=== PATIENT | male | born 1980 | race Caucasian/White ===

== ENCOUNTER 2020-09-06 03:59 | Emergency (ER) | payer MEDICAID, SELFPAY ==
[~2020-09-06] VITALS: Ht 185.4 cm; Wt 101.0 kg
[2020-09-06 04:08] VITALS: BP 126/86
[2020-09-06] MEDS ORDERED: LORazepam 1MG TABLET PO ONE (04:30)
[2020-09-06] MEDS ORDERED: LORazepam 1MG TABLET ONE (04:44)
--- NOTE | 2020-09-06 05:21 | NUR ---
Patient/Caregiver given discharge instructions and they have confirmed that they understand the instructions. Patient ambulatory with steady gait.
== END 2020-09-06 05:22 | disposition home or self-care (01) ==
LOC: ED 05:16
DX: F41.1 Generalized anxiety disorder (principal); F10.14 Alcohol abuse with alcohol-induced mood disorder; F11.14 Opioid abuse with opioid-induced mood disorder; F15.14 Other stimulant abuse with stimulant-induced mood disorder; Y90.9 Presence of alcohol in blood, level not specified
CPT/HCPCS: 99283

== ENCOUNTER 2020-09-30 08:39 | Emergency (ER) | payer MEDICAID ==
[~2020-09-30] VITALS: Ht 182.9 cm; Wt 105.0 kg
--- NOTE | 2020-09-30 08:58 | NUR ---
[place]. report received from ems. +SI. pt went to [facility](out patient rehab) and had severe delusions with SI statement. Legal hold placed by SW at [facility]. pt's aox4. resps even and unlabored. pt changed to gown. all belongings put into bag and into locker.
--- NOTE | 2020-09-30 09:04 | NUR ---
urine cup given at this time.
--- NOTE | 2020-09-30 09:08 | NUR ---
pt provided urine sample. ua sent.
--- NOTE | 2020-09-30 09:10 | NUR ---
L2K paper in the chart. pa notified.
[2020-09-30 09:16] LABS: BASOPHILS % (AUTO) 1 % (0-1); EOSINOPHILS % (AUTO) 3 % (1-7); LYMPHOCYTES % (AUTO) 28 % (22-44); MEAN CORPUSCULAR HEMOGLOBIN 30.4 pg (27.5-34.5); MEAN CORPUSCULAR HGB CONC 34.2 g/dL (33.2-36.2); MEAN PLATELET VOLUME 7.5 fL (7.4-10.4); MONOCYTES % (AUTO) 10 % (2-9); NEUTROPHILS % (AUTO) 59 % (42-75); PLATELET COUNT 229 x10^3/uL (130-400); RED BLOOD COUNT 4.63 x10^6/uL (4.38-5.82); RED CELL DISTRIBUTION WIDTH 12.9 % (9.4-14.8)
[2020-09-30 09:20] LABS: MD NO
[2020-09-30 09:27] LABS: ALBUMIN 3.9 g/dL (3.4-5.0); ANION GAP 5 mmol/L (5-15); CALCIUM 8.6 mg/dL (8.5-10.1); CHLORIDE 106 mmol/L (98-107); CREATININE 0.76 mg/dL (0.7-1.3)
--- NOTE | 2020-09-30 09:27 | NUR ---
hospital bed ordered at this time.
[2020-09-30 09:29] LABS: SALICYLATE LEVEL < 1.7 mg/dL (2.8-20.0)
[2020-09-30 09:40] LABS: AMPHETAMINE SCREEN, URINE Negative (Negative); BARBITURATE SCREEN, URINE Negative (Negative); COCAINE SCREEN, URINE Negative (Negative); METHADONE SCREEN, URINE Positive (Negative); OPIATE SCREEN, URINE Negative (Negative)
[2020-09-30 09:41] LABS: BENZODIAZEPINE SCREEN, URINE Negative (Negative); CANNABINOID SCREEN, URINE Positive (Negative)
--- NOTE | 2020-09-30 09:41 | NUR ---
hospital bed in room now.
--- NOTE | 2020-09-30 10:36 | NUR ---
REPORT FROM CARROLL LUGO, ASSUME CARE OF PT AT THIS TIME.
--- NOTE | 2020-09-30 11:01 | NUR ---
PT SLEEPING, NAD. SITTER AT DOORWAY.
--- NOTE | 2020-09-30 12:10 | NUR ---
SARINA LI IN TO SEE PT. MEAL TRAY ARRIVED AND WITH SITTER.
[2020-09-30 13:40] VITALS: BP 116/71
--- NOTE | 2020-09-30 13:40 | NUR ---
RAPID COVID SWAB COMPLETED AND WALKED TO LAB. VS UPDATED IN COMPUTER. PT COOPERATIVE, COMPLETED LUNCH. SITTER AT DOORWAY.
--- NOTE | 2020-09-30 14:33 | NUR ---
REPORT TO BARB LUGO, PT READY FOR TRANSPORT AT 1445.
[2020-09-30] MEDS ORDERED: NICO2GUM41 PO (16:11)
[2020-09-30] MEDS ORDERED: METH10OR12 PO (16:11)
== END 2020-10-01 01:05 | disposition home or self-care (01) ==
LOC: ED 09:23
DX: R45.851 Suicidal ideations (principal); Z20.822 Contact with and (suspected) exposure to COVID-19
CPT/HCPCS: 36415; 80048; 80299; 80307; 80320; 80329; 82040; 85025; 87426; 99283; 99284; 99285; G0480

== ENCOUNTER 2020-09-30 15:10 | Inpatient (IN) | payer MEDICAID ==
[~2020-09-30] VITALS: Ht 184.2 cm; Wt 101.5 kg
[2020-09-30 15:44] VITALS: BP 119/76
[2020-09-30] MEDS ORDERED: METH10OR12 PO (16:11)
[2020-09-30] MEDS ORDERED: NICO2GUM41 PO (16:11)
[2020-09-30] MEDS ORDERED: ONDANSETRON ODT 4 MG PO PRN (16:30)
[2020-09-30] MEDS ORDERED: FLU VACC QS2020-21(6MOS UP)/PF 60MCG/0.5 ML SYR IM ONE (16:30)
[2020-09-30] MEDS ORDERED: NICOTINE 21 MG/24 HR PATCH.TD24 TD SCH (16:30)
[2020-09-30 17:18] LABS: MICROSCOPIC NOT IND
[2020-09-30 19:45] VITALS: BP 105/67
[2020-10-01 05:46] LABS: FREE T4 (FREE THYROXINE) 1.1 ng/dL (0.76-1.46); LDL/HDL RATIO 0.7 (0.5-3.0)
[2020-10-01 07:08] VITALS: BP 103/72
[2020-10-01] MEDS: METHADONE 10 MG TABLET PO SCH (08:41)
[2020-10-01] MEDS: ACETAMINOPHEN 325 MG TABLET PO PRN ×2 (09:13→20:10)
[2020-10-01] MEDS: NICOTINE 21 MG/24 HR PATCH.TD24 TD SCH (09:13)
[2020-10-01] MEDS: CARIPRAZINE 1.5 MG CAP PO SCH (14:33)
[2020-10-01 19:06] VITALS: BP 103/70
[2020-10-01] MEDS: DOXEPIN 25 MG CAPSULE PO PRN (20:10)
[2020-10-01] MEDS: DOCUSATE 100 MG CAPSULE PO PRN (20:10)
[2020-10-02] MEDS: METHADONE 10 MG TABLET PO SCH (05:57)
[2020-10-02 07:34] VITALS: BP 122/74
[2020-10-02] MEDS: CARIPRAZINE 1.5 MG CAP PO SCH (08:30)
[2020-10-02] MEDS: NICOTINE 21 MG/24 HR PATCH.TD24 TD SCH (08:30)
[2020-10-02] MEDS: POLYETHYLENE GLYCOL 17 GM PACKET PO PRN (08:40)
[2020-10-02] MEDS: ACETAMINOPHEN 325 MG TABLET PO PRN ×2 (08:40→20:13)
[2020-10-02 19:54] VITALS: BP 114/70
[2020-10-02] MEDS: DOXEPIN 25 MG CAPSULE PO PRN (20:13)
[2020-10-02] MEDS: DOCUSATE 100 MG CAPSULE PO PRN (20:14)
[2020-10-03 05:54] VITALS: BP 105/68
[2020-10-03 05:55] VITALS: BP 105/68
[2020-10-03] MEDS: METHADONE 10 MG TABLET PO SCH (05:58)
[2020-10-03] MEDS: CARIPRAZINE 1.5 MG CAP PO SCH ×2 (09:00→10:01)
[2020-10-03] MEDS: NICOTINE 21 MG/24 HR PATCH.TD24 TD SCH (09:59)
[2020-10-03 19:30] VITALS: BP 118/80
[2020-10-03] MEDS: DOXEPIN 25 MG CAPSULE PO PRN (20:20)
[2020-10-03] MEDS: ACETAMINOPHEN 325 MG TABLET PO PRN (20:20)
[2020-10-03] MEDS: POLYETHYLENE GLYCOL 17 GM PACKET PO PRN (20:20)
[2020-10-04] MEDS: METHADONE 10 MG TABLET PO SCH (05:49)
[2020-10-04] MEDS: ACETAMINOPHEN 325 MG TABLET PO PRN ×3 (05:57→20:20)
[2020-10-04 07:39] VITALS: BP 111/72
[2020-10-04] MEDS: CARIPRAZINE 1.5 MG CAP PO SCH (09:00)
[2020-10-04] MEDS: POLYETHYLENE GLYCOL 17 GM PACKET PO PRN (09:05)
[2020-10-04] MEDS: NICOTINE 21 MG/24 HR PATCH.TD24 TD SCH (09:06)
[2020-10-04 19:36] VITALS: BP 105/69
[2020-10-04] MEDS: DOXEPIN 25 MG CAPSULE PO PRN (20:20)
[2020-10-04] MEDS: DOCUSATE 100 MG CAPSULE PO PRN (20:20)
[2020-10-05] MEDS: ACETAMINOPHEN 325 MG TABLET PO PRN ×3 (06:02→20:17)
[2020-10-05] MEDS: METHADONE 10 MG TABLET PO SCH (06:02)
[2020-10-05 07:39] VITALS: BP 108/71
[2020-10-05] MEDS: CARIPRAZINE 1.5 MG CAP PO SCH (09:00)
[2020-10-05] MEDS: DOCUSATE 100 MG CAPSULE PO PRN (09:30)
[2020-10-05] MEDS: NICOTINE 21 MG/24 HR PATCH.TD24 TD SCH (09:30)
[2020-10-05] MEDS: POLYETHYLENE GLYCOL 17 GM PACKET PO PRN (09:30)
[2020-10-05] MEDS: MAGNESIUM CITRATE 300ML ORAL SOL PO PRN (17:15)
[2020-10-05 19:17] VITALS: BP 118/76
[2020-10-05] MEDS: DOXEPIN 25 MG CAPSULE PO PRN (20:18)
[2020-10-06] MEDS: METHADONE 10 MG TABLET PO SCH (06:00)
[2020-10-06 07:39] VITALS: BP 109/67
[2020-10-06] MEDS: ACETAMINOPHEN 325 MG TABLET PO PRN ×2 (08:13→20:13)
[2020-10-06] MEDS: NICOTINE 21 MG/24 HR PATCH.TD24 TD SCH (08:13)
[2020-10-06] MEDS: CARIPRAZINE 1.5 MG CAP PO SCH (08:15)
[2020-10-06 19:35] VITALS: BP 117/75
[2020-10-06] MEDS: DOXEPIN 25 MG CAPSULE PO PRN (20:13)
[2020-10-07] MEDS ORDERED: METHADONE 5 MG TABLET ONE (06:02)
[2020-10-07] MEDS: METHADONE 10 MG TABLET PO SCH (06:15)
[2020-10-07 07:35] VITALS: BP 118/76
[2020-10-07] MEDS: CARIPRAZINE 1.5 MG CAP PO SCH (08:27)
[2020-10-07] MEDS: NICOTINE 21 MG/24 HR PATCH.TD24 TD SCH (08:27)
[2020-10-07] MEDS ORDERED: DOXE25CA PO (09:53)
[2020-10-07] MEDS ORDERED: CARI1.5C2 PO (09:53)
[2020-10-07 19:13] VITALS: BP 119/82
[2020-10-07] MEDS: DOXEPIN 25 MG CAPSULE PO PRN (20:16)
[2020-10-08] MEDS: METHADONE 10 MG TABLET PO SCH (06:05)
[2020-10-08 07:30] VITALS: BP 128/82
[2020-10-08] MEDS: CARIPRAZINE 1.5 MG CAP PO SCH (09:11)
[2020-10-08] MEDS: NICOTINE 21 MG/24 HR PATCH.TD24 TD SCH (09:11)
[2020-10-08 19:20] VITALS: BP 103/69
[2020-10-08] MEDS: DOXEPIN 25 MG CAPSULE PO PRN (20:18)
[2020-10-09] MEDS: METHADONE 10 MG TABLET PO SCH (05:38)
[2020-10-09 07:10] VITALS: BP 117/79
[2020-10-09] MEDS: NICOTINE 21 MG/24 HR PATCH.TD24 TD SCH (09:24)
[2020-10-09] MEDS: CARIPRAZINE 1.5 MG CAP PO SCH (09:24)
[2020-10-09] MEDS: MAGNESIUM CITRATE 300ML ORAL SOL PO PRN (09:25)
[2020-10-09 19:38] VITALS: BP 107/73
[2020-10-09] MEDS: DOXEPIN 25 MG CAPSULE PO PRN (20:43)
[2020-10-10] MEDS: METHADONE 10 MG TABLET PO SCH (06:17)
[2020-10-10 07:57] VITALS: BP_SYST 113; BP_SYST 115; BP_DIAS 71; BP_DIAS 75
[2020-10-10] MEDS: NICOTINE 21 MG/24 HR PATCH.TD24 TD SCH (09:01)
[2020-10-10] MEDS: CARIPRAZINE 1.5 MG CAP PO SCH (09:08)
[2020-10-10 19:47] VITALS: BP 123/87
[2020-10-10] MEDS: DOXEPIN 25 MG CAPSULE PO PRN (20:14)
[2020-10-11] MEDS: METHADONE 10 MG TABLET PO SCH (06:16)
[2020-10-11 07:42] VITALS: BP 133/91
[2020-10-11] MEDS: NICOTINE 21 MG/24 HR PATCH.TD24 TD SCH (08:59)
[2020-10-11] MEDS: CARIPRAZINE 1.5 MG CAP PO SCH (09:00)
[2020-10-11] MEDS: PAROXETINE 20 MG TABLET PO SCH (15:52)
[2020-10-11 19:30] VITALS: BP 121/78
[2020-10-11] MEDS: DOXEPIN 25 MG CAPSULE PO PRN (20:05)
[2020-10-11] MEDS: DOCUSATE 100 MG CAPSULE PO PRN (20:05)
[2020-10-12] MEDS: METHADONE 10 MG TABLET PO SCH (06:10)
[2020-10-12 07:51] VITALS: BP 115/80
[2020-10-12] MEDS: PAROXETINE 20 MG TABLET PO SCH (08:31)
[2020-10-12] MEDS: CARIPRAZINE 1.5 MG CAP PO SCH (08:32)
[2020-10-12] MEDS: NICOTINE 21 MG/24 HR PATCH.TD24 TD SCH (08:33)
[2020-10-12 19:32] VITALS: BP 117/85
[2020-10-12] MEDS: DOXEPIN 25 MG CAPSULE PO PRN (20:12)
[2020-10-13] MEDS: METHADONE 10 MG TABLET PO SCH (06:01)
[2020-10-13 07:10] VITALS: BP 115/73
[2020-10-13] MEDS: CARIPRAZINE 1.5 MG CAP PO SCH (08:59)
[2020-10-13] MEDS: NICOTINE 21 MG/24 HR PATCH.TD24 TD SCH (08:59)
[2020-10-13] MEDS: PAROXETINE 20 MG TABLET PO SCH (09:52)
[2020-10-13 19:38] VITALS: BP 119/76
[2020-10-13] MEDS: DOXEPIN 25 MG CAPSULE PO PRN (20:05)
[2020-10-14] MEDS: METHADONE 10 MG TABLET PO SCH (05:56)
[2020-10-14 07:46] VITALS: BP 112/72
[2020-10-14] MEDS: CARIPRAZINE 1.5 MG CAP PO SCH (09:00)
[2020-10-14] MEDS: PAROXETINE 20 MG TABLET PO SCH (09:00)
[2020-10-14] MEDS: NICOTINE 21 MG/24 HR PATCH.TD24 TD SCH (09:00)
== END 2020-10-14 11:00 | disposition home or self-care (01) | DRG 885 ==
LOC: 3E 15:10
PROVIDERS: ADMIT Psychiatry & Neurology Psychosomatic Medicine; ATTEND Psychiatry & Neurology Psychosomatic Medicine
DX: F33.2 Major depressive disorder, recurrent severe without psychotic features (principal); F11.20 Opioid dependence, uncomplicated; R45.851 Suicidal ideations; F10.21 Alcohol dependence, in remission; F12.10 Cannabis abuse, uncomplicated; F25.9 Schizoaffective disorder, unspecified; F41.9 Anxiety disorder, unspecified; Z87.891 Personal history of nicotine dependence
CPT/HCPCS: 36415; 71045; 80061; 81003; 84439; 84443; 90686; 93005; Q0162

== ENCOUNTER 2020-10-22 21:26 | Emergency (ER) | payer MEDICAID ==
[~2020-10-22] VITALS: Ht 188 cm; Wt 100.0 kg
[~2020-10-22 21:26] MED LIST: CARI1.5C2 PO; DOXE25CA PO; METH10OR12 PO; NICO2GUM41 PO
[2020-10-22] MEDS ORDERED: BENZTROPINE PO (22:36)
[2020-10-22] MEDS ORDERED: HALO1TAB PO (22:36)
[2020-10-22] MEDS ORDERED: [UNRECOGNIZED DRUG - OTHER] PO (22:36)
[2020-10-22] MEDS ORDERED: OLAN10TA9 PO (22:36)
[2020-10-22] MEDS ORDERED: HALO10TA PO (22:36)
[2020-10-22] MEDS ORDERED: PAROXETINE PO (22:36)
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
--- NOTE | 2020-10-22 23:14 | NUR ---
ANEUDY ALANIS: [phone] PT OKAYED INFORMATION RELEASE TO HIM.
--- NOTE | 2020-10-22 23:34 | NUR ---
PT RESTING ON JULISA, BESSY, NO CHANGE IN CONDITION, ROOM SECURED, SITTER IN LINE OF SIGHT, VSS. WCTM. WAITING FOR LABS RESULTS.
[2020-10-22 23:35] LABS: AMPHETAMINE SCREEN, URINE Negative (Negative); BARBITURATE SCREEN, URINE Negative (Negative); BENZODIAZEPINE SCREEN, URINE Negative (Negative); CANNABINOID SCREEN, URINE Positive (Negative); COCAINE SCREEN, URINE Negative (Negative); METHADONE SCREEN, URINE Positive (Negative); OPIATE SCREEN, URINE Negative (Negative)
[2020-10-22 23:37] LABS: ALANINE AMINOTRANSFERASE 112 U/L (12-78); ALBUMIN 4.3 g/dL (3.4-5.0); ANION GAP 8 mmol/L (5-15); CALCIUM 8.8 mg/dL (8.5-10.1); CHLORIDE 109 mmol/L (98-107); CREATININE 0.76 mg/dL (0.7-1.3)
[2020-10-22 23:38] LABS: SALICYLATE LEVEL < 1.7 mg/dL (2.8-20.0)
[2020-10-22 23:39] LABS: ALKALINE PHOSPHATASE 52 U/L (45-117); BILIRUBIN,TOTAL 0.4 mg/dL (0.2-1.0); TOTAL PROTEIN 7.8 g/dL (6.4-8.2)
[2020-10-22 23:50] LABS: BASOPHILS % (AUTO) 1 % (0-1); EOSINOPHILS % (AUTO) 1 % (1-7); LYMPHOCYTES % (AUTO) 27 % (22-44); MEAN CORPUSCULAR HEMOGLOBIN 30.1 pg (27.5-34.5); MEAN CORPUSCULAR HGB CONC 34.2 g/dL (33.2-36.2); MEAN PLATELET VOLUME 7.7 fL (7.4-10.4); MONOCYTES % (AUTO) 6 % (2-9); NEUTROPHILS % (AUTO) 65 % (42-75); PLATELET COUNT 274 x10^3/uL (130-400); RED CELL DISTRIBUTION WIDTH 13.4 % (9.4-14.8)
[2020-10-23] LABS: MD NO
--- NOTE | 2020-10-23 00:14 | NUR ---
PT RESTING ON GURNEY, NAD, EVEN AND UNLABORED RESPIRATIONS NOTED, EYES CLOSED, APPEARS COMFORTABLE, ROOM SECURED, SITTER IN LINE OF SIGHT, WCTM.
--- NOTE | 2020-10-23 00:56 | NUR ---
PT RESTING ON GURNEY, NAD, APPEARS COMFORTABLE, NO CHANGE IN CONDITION, VSS, EVEN AND UNLABORED RESPIRATIONS, ROOM SECURED, SITTER IN LINE OF SIGHT, WCTM.
--- NOTE | 2020-10-23 01:20 | NUR ---
BEDSIDE REPORT TO SKIP LUGO, PT CARE TRANSFERRED AT THIS TIME.
--- NOTE | 2020-10-23 02:05 | NUR ---
[facility]
--- NOTE | 2020-10-23 03:49 | NUR ---
PT RESTING IN BED WITH SITTER AT PT DOOR. PT IN SI SECURE ROOM. PT WITH EQUAL AND BILATERAL BREATHS. PT DENIED ANY CURRENT WANTS OR NEEDS
--- NOTE | 2020-10-23 03:55 | NUR ---
PACKET FAXED TO [facility], [facility], [facility]
--- NOTE | 2020-10-23 05:12 | NUR ---
HOSPITAL BED ORDERED FOR PT.
--- NOTE | 2020-10-23 06:00 | NUR ---
[facility] CALLED (RO) CONSIDERING TAKING PT ONCE THEY HAVE A BED AVALIABLE
--- NOTE | 2020-10-23 06:17 | NUR ---
PT MOVED TO ROOM 1, AND AMBULATED WITHOUT INCIDENT AND NO TROUBLE. PT AWAKE AND ALERT, AND COOPERATIVE. PT SLEEPING IN HOSPITAL BED NOW, NO DISTRESS. SITTER OUTSIDE OF DOOR WITH EYES ON PT.
--- NOTE | 2020-10-23 06:47 | NUR ---
REPORT AND CARE TO CHINO LUGO.
--- NOTE | 2020-10-23 06:52 | NUR ---
Pt sleeping in view of sitter, visible chest rise and fall. Breakfast tray ordered.
--- NOTE | 2020-10-23 06:58 | NUR ---
06/25 belongings bag verified in psych locker.
--- NOTE | 2020-10-23 08:39 | NUR ---
[facility] to accept. Report to PARISH Caro. Accepting MD Davis.
[2020-10-23 09:06] VITALS: BP 113/75
--- NOTE | 2020-10-23 09:07 | NUR ---
Pt given breakfast. Pt calm, and cooperative
== END 2020-10-23 12:14 ==
LOC: ED 22:46
DX: R45.851 Suicidal ideations (principal); F20.0 Paranoid schizophrenia
CPT/HCPCS: 36415; 80053; 80299; 80307; 80320; 80329; 85025; 99284; 99285; G0480

== ENCOUNTER 2020-11-29 | Emergency (ER) | payer MEDICAID ==
[~2020-11-29] VITALS: Ht 182.9 cm; Wt 104.5 kg
[~2020-11-29] MED LIST changes: +BENZTROPINE PO; +HALO10TA PO; +HALO1TAB PO; +OLAN10TA9 PO; +PAROXETINE PO; +[UNRECOGNIZED DRUG - OTHER] PO
[2020-11-29 00:23] VITALS: BP 116/73
--- NOTE | 2020-11-29 00:23 | NUR ---
Pt BIB EMS for auditory and visual hallucinations that were telling the pt to slit his throat with a knife. Pt states that he has a plan and that the "voices" are telling him to hurt himself. Pt has a past hx of schizophrenia and SI. Pt was placed in secure room, only hospital gown, and belongings accounted for and placed in secure locker. UA sample obtained, VSS, NADN, WCTM
[2020-11-29 00:41] LABS: BASOPHILS % (AUTO) 1 % (0-1); EOSINOPHILS % (AUTO) 4 % (1-7); LYMPHOCYTES % (AUTO) 32 % (22-44); MEAN CORPUSCULAR HEMOGLOBIN 30.9 pg (27.5-34.5); MEAN CORPUSCULAR HGB CONC 34.2 g/dL (33.2-36.2); MEAN PLATELET VOLUME 7.2 fL (7.4-10.4); MONOCYTES % (AUTO) 7 % (2-9); NEUTROPHILS % (AUTO) 57 % (42-75); PLATELET COUNT 287 x10^3/uL (130-400); RED BLOOD COUNT 4.31 x10^6/uL (4.38-5.82); RED CELL DISTRIBUTION WIDTH 12.6 % (9.4-14.8)
[2020-11-29 00:42] LABS: MD NO
[2020-11-29 00:54] LABS: ALANINE AMINOTRANSFERASE 56 U/L (12-78); ALBUMIN 3.7 g/dL (3.4-5.0); ANION GAP 5 mmol/L (5-15); CALCIUM 8.4 mg/dL (8.5-10.1); CHLORIDE 107 mmol/L (98-107); CREATININE 0.71 mg/dL (0.7-1.3); SALICYLATE LEVEL < 1.7 mg/dL (2.8-20.0)
[2020-11-29 00:56] LABS: ALKALINE PHOSPHATASE 67 U/L (45-117); BILIRUBIN,TOTAL 0.2 mg/dL (0.2-1.0); TOTAL PROTEIN 7.6 g/dL (6.4-8.2)
--- NOTE | 2020-11-29 01:25 | NUR ---
Pt resting in bed with eyes closed, even and symmetrical chest rise, NADN, WCTM
[2020-11-29 01:33] LABS: AMPHETAMINE SCREEN, URINE Negative (Negative); BARBITURATE SCREEN, URINE Negative (Negative); BENZODIAZEPINE SCREEN, URINE Negative (Negative); CANNABINOID SCREEN, URINE Positive (Negative); COCAINE SCREEN, URINE Negative (Negative); METHADONE SCREEN, URINE Positive (Negative); OPIATE SCREEN, URINE Negative (Negative)
--- NOTE | 2020-11-29 02:37 | NUR ---
Ciro has been in view of pt during his stay thus far
--- NOTE | 2020-11-29 02:37 | NUR ---
Pt resting in bed with eyes closed, even and symmetrical chest rise, NADN, WCTM
--- NOTE | 2020-11-29 04:02 | NUR ---
Pt resting in bed with eyes closed, even and symmetrical chest rise, NADN, WCTM. Sitter in line of sight of pt
--- NOTE | 2020-11-29 04:05 | NUR ---
Packet faxed to [facility] which have expressed intrest in this pt
--- NOTE | 2020-11-29 04:08 | NUR ---
TP: [facility] DECLINED PT
--- NOTE | 2020-11-29 04:11 | NUR ---
[facility] declined, packet faxed to [facility], Yazan Ferrell, and Reed Marcano
--- NOTE | 2020-11-29 04:28 | NUR ---
Kvng to nurse with Edward ULGO from [place], says he will call back
--- NOTE | 2020-11-29 04:31 | NUR ---
TP: DR RUANO FROM [facility] ACCEPTS PT
--- NOTE | 2020-11-29 05:00 | NUR ---
Pt resting in bed with eyes closed, even and symmetrical chest rise, NADN, WCTM. Sitter in line of sight of pt
--- NOTE | 2020-11-29 05:32 | NUR ---
Pt left with EMS, all belongings accounted for and given to EMS crew
== END 2020-11-29 05:34 ==
LOC: ED 00:21
DX: F33.9 Major depressive disorder, recurrent, unspecified (principal); F12.20 Cannabis dependence, uncomplicated; F10.120 Alcohol abuse with intoxication, uncomplicated; F20.9 Schizophrenia, unspecified; F41.1 Generalized anxiety disorder; Y90.0 Blood alcohol level of less than 20 mg/100 ml
CPT/HCPCS: 36415; 80053; 80299; 80307; 80320; 80329; 85025; 99285; G0480

== ENCOUNTER 2020-12-10 02:40 | Emergency (ER) | payer MEDICAID ==
[~2020-12-10] VITALS: Ht 182.9 cm; Wt 100.0 kg
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
--- NOTE | 2020-12-10 03:33 | NUR ---
ERP AT BEDSIDE
[2020-12-10 03:50] LABS: BASOPHILS % (AUTO) 1 % (0-1); EOSINOPHILS % (AUTO) 4 % (1-7); LYMPHOCYTES % (AUTO) 25 % (22-44); MEAN CORPUSCULAR HEMOGLOBIN 30.7 pg (27.5-34.5); MEAN CORPUSCULAR HGB CONC 34.2 g/dL (33.2-36.2); MEAN PLATELET VOLUME 7.1 fL (7.4-10.4); MONOCYTES % (AUTO) 5 % (2-9); NEUTROPHILS % (AUTO) 66 % (42-75); PLATELET COUNT 242 x10^3/uL (130-400); RED BLOOD COUNT 4.27 x10^6/uL (4.38-5.82)
[2020-12-10 04:01] LABS: ALBUMIN 3.5 g/dL (3.4-5.0); ANION GAP 7 mmol/L (5-15); CALCIUM 8.3 mg/dL (8.5-10.1); CHLORIDE 104 mmol/L (98-107); CREATININE 0.65 mg/dL (0.7-1.3)
[2020-12-10 04:03] LABS: SALICYLATE LEVEL < 1.7 mg/dL (2.8-20.0)
[2020-12-10 04:18] LABS: AMPHETAMINE SCREEN, URINE Negative (Negative); BARBITURATE SCREEN, URINE Negative (Negative); BENZODIAZEPINE SCREEN, URINE Negative (Negative); CANNABINOID SCREEN, URINE Positive (Negative); COCAINE SCREEN, URINE Negative (Negative); METHADONE SCREEN, URINE Positive (Negative); OPIATE SCREEN, URINE Negative (Negative)
--- NOTE | 2020-12-10 06:04 | NUR ---
PT SITTING UPRIGHT ON FRANTZ EGAN. PT DENIES ANY NEEDS AT THIS TIME. AWAITING TELEPSYCH. SAFETY PRECAUTIONS IN PLACE, SAFETY GONZALEZ DOWN, SITTER IN VIEW.
--- NOTE | 2020-12-10 06:51 | NUR ---
RECEIVED REPORT FROM SHANTAL LUGO, PLAN OF CARE DISCUSSED. PT SLEEPING RESP EVEN AND UNLABORED, SITTER AT BS, ROOM SECURED. ORDERED BREAKFAST.
--- NOTE | 2020-12-10 06:53 | NUR ---
REPORT GIVEN TO KAMLESH LUGO
--- NOTE | 2020-12-10 07:36 | NUR ---
PT COOPERATIVE, AWAITING TELE MD ON COMPUTER, DENIES SI AT THIS TIME. VERBALIZED NO NEEDS AT THIS TIME
[2020-12-10 07:37] VITALS: BP 117/72
--- NOTE | 2020-12-10 08:29 | NUR ---
PT UP TO BATHROOM, RECOMMENDATION FOR SOC IS LEGAL 1999. BREAKFAST GIVEN, SITTER AT DOOR, ROOM REMAINS SECURED
--- NOTE | 2020-12-10 08:55 | NUR ---
RECEIVED REPORT FROM REY DANIELSON RN. PT RESTING ON GURNEY. LANDRY. ROOM REMAINS SECURE. SITTER REMAINS AT BEDSIDE.
--- NOTE | 2020-12-10 09:30 | NUR ---
PT RESTING ON JULISA. FRANTZ. SITTER REMAINS AT BEDSIDE. ROOM REMAINS SECURE.
--- NOTE | 2020-12-10 10:15 | NUR ---
PT RESTING ON JULISA. FRANTZ. SITTER REMAINS AT BEDSIDE. ROOM REMAINS SECURE.
--- NOTE | 2020-12-10 11:04 | NUR ---
PT RESTING ON JULISA. FRANTZ. SITTER REMAINS AT BEDSIDE. ROOM REMAINS SECURE.
--- NOTE | 2020-12-10 11:38 | NUR ---
PT STATES HE IS A PART OF THE [facility] ON [address] AND WOULD LIKE THIS RN TO CALL AND SPEAK WITH THEM IN REGARDS TO PT STAY IN ED AND POC WITH THEM PT WILL MISS HIS APPT TODAY. CALLED [phone] AND WAS TRANSFERRED TO PT'S COUNSELOR. NO ANSWER. MESSAGE LEFT.
--- NOTE | 2020-12-10 11:43 | NUR ---
COUNSELOR FROM [facility] CALLED BACK. PT SPOKE W/ COUNSELOR FROM [employer].
--- NOTE | 2020-12-10 11:56 | NUR ---
ER COUNSELOR AT [facility] FAX RECORDS RELEASE FORM TO GET NEW METH[employer] DOSAGE FOR PT. SARINA ABRAMS AWARE AND CURRENTLY IN ROOM SPEAKING W/ PT.
--- NOTE | 2020-12-10 12:09 | NUR ---
PT PROVIDED W/ SI LUNCH TRAY. PT RESTING ON GURMAGGIE. FRANTZ. SITTER REMAINS AT BEDSIDE. ROOM REMAINS SECURE.
[2020-12-10] MEDS ORDERED: BUSPIRONE 5 MG TABLET PO SCH (12:30)
[2020-12-10] MEDS ORDERED: PAROXETINE 10 MG TABLET PO SCH (12:30)
[2020-12-10] MEDS ORDERED: [UNRECOGNIZED DRUG - CODE] PO (13:11)
--- NOTE | 2020-12-10 13:13 | NUR ---
PT RESTING ON JULISA. FRANTZ. SITTER REMAINS AT BEDSIDE. ROOM REMAINS SECURE.
--- NOTE | 2020-12-10 13:18 | NUR ---
YELLOW SLIP SENT TO PHARMACY FOR MEDS PER AUG.
[2020-12-10] MEDS ORDERED: METHADONE 10 MG TABLET PO ONE (13:30)
--- NOTE | 2020-12-10 13:49 | NUR ---
THROUGHPUT RN: PT ACCEPTED BY [facility], PT TO GO TO ROOM 382-2.
--- NOTE | 2020-12-10 13:52 | NUR ---
REPORT GIVEN TO MILA VEGA RN. ALL QUESTIONS ANSWERED. AWAITING PT TRANSPORT.
[2020-12-10] MEDS ORDERED: NATURE THYROID PO (14:23)
[2020-12-10] MEDS ORDERED: BUSP5TAB2 PO (14:23)
== END 2020-12-10 14:01 ==
LOC: ED 03:00
DX: F25.9 Schizoaffective disorder, unspecified (principal); Z20.822 Contact with and (suspected) exposure to COVID-19; R45.851 Suicidal ideations; F32.9 Major depressive disorder, single episode, unspecified; Z87.891 Personal history of nicotine dependence
CPT/HCPCS: 36415; 80048; 80299; 80307; 80320; 80329; 82040; 85025; 87426; 99285; G0480

== ENCOUNTER 2020-12-10 13:33 | Inpatient (IN) | payer MEDICAID ==
[~2020-12-10] VITALS: Ht 182.9 cm; Wt 102.6 kg
[~2020-12-10 13:33] MED LIST changes: +[UNRECOGNIZED DRUG - CODE] PO
[2020-12-10] MEDS ORDERED: POLYETHYLENE GLYCOL 17 GM PACKET PO PRN (14:00)
[2020-12-10] MEDS ORDERED: ONDANSETRON ODT 4 MG PO PRN (14:00)
[2020-12-10] MEDS ORDERED: BISACODYL 10 MG SUPP PR PRN (14:00)
[2020-12-10] MEDS ORDERED: ACETAMINOPHEN 325 MG TABLET PO PRN (14:00)
[2020-12-10 14:20] VITALS: BP 142/89
[2020-12-10] MEDS ORDERED: BUSP5TAB2 PO (14:23)
[2020-12-10] MEDS ORDERED: NATURE THYROID PO (14:23)
[2020-12-10] MEDS ORDERED: BUSPIRONE 5 MG TABLET PO ONE (14:30)
[2020-12-10] MEDS ORDERED: PAROXETINE 10 MG TABLET PO ONE (14:30)
[2020-12-10] MEDS ORDERED: NICOTINE 21 MG/24 HR PATCH.TD24 ONE (15:13)
[2020-12-10] MEDS: NICOTINE 21 MG/24 HR PATCH.TD24 TD SCH (15:20)
[2020-12-10] MEDS ORDERED: PLEASE ENTER HEIGHT AND WEIGHT MC SCH ×2 (15:30→17:30)
[2020-12-10 19:03] VITALS: BP 129/82
[2020-12-10] MEDS: BUSPIRONE 5 MG TABLET PO SCH (20:29)
[2020-12-10] MEDS: DOCUSATE 100 MG CAPSULE PO PRN (20:57)
[2020-12-11 07:08] VITALS: BP 112/73
[2020-12-11] MEDS: BUSPIRONE 5 MG TABLET PO SCH ×2 (09:00→20:24)
[2020-12-11] MEDS: PAROXETINE 10 MG TABLET PO SCH (09:00)
[2020-12-11] MEDS: METHADONE 10 MG TABLET PO SCH (09:01)
[2020-12-11] MEDS: NICOTINE 21 MG/24 HR PATCH.TD24 TD SCH (09:07)
[2020-12-11] MEDS ORDERED: NICOTINE 21 MG/24 HR PATCH.TD24 TD SCH (15:00)
[2020-12-11 17:31] LABS: MICROSCOPIC NOT IND
[2020-12-11 19:18] VITALS: BP 125/80
[2020-12-11 19:19] VITALS: BP 112/76
[2020-12-11] MEDS: HALOPERIDOL 5 MG TABLET PO SCH (20:24)
[2020-12-11] MEDS: BENZTROPINE 1 MG TABLET PO SCH (20:24)
[2020-12-12 07:42] VITALS: BP 107/73
[2020-12-12] MEDS: HALOPERIDOL 5 MG TABLET PO SCH ×2 (07:55→20:12)
[2020-12-12] MEDS: BUSPIRONE 5 MG TABLET PO SCH ×2 (07:55→20:12)
[2020-12-12] MEDS: BENZTROPINE 1 MG TABLET PO SCH ×2 (07:55→20:12)
[2020-12-12] MEDS: PAROXETINE 10 MG TABLET PO SCH (07:55)
[2020-12-12] MEDS: NICOTINE 21 MG/24 HR PATCH.TD24 TD SCH (07:56)
[2020-12-12] MEDS: METHADONE 10 MG TABLET PO SCH (09:09)
[2020-12-12 19:26] VITALS: BP 99/62
[2020-12-13 07:30] VITALS: BP 126/83
[2020-12-13] MEDS: METHADONE 10 MG TABLET PO SCH (09:10)
[2020-12-13] MEDS: HALOPERIDOL 5 MG TABLET PO SCH ×2 (09:10→20:01)
[2020-12-13] MEDS: NICOTINE 21 MG/24 HR PATCH.TD24 TD SCH (09:11)
[2020-12-13] MEDS: PAROXETINE 10 MG TABLET PO SCH (09:11)
[2020-12-13] MEDS: BUSPIRONE 5 MG TABLET PO SCH ×2 (09:11→20:01)
[2020-12-13] MEDS: BENZTROPINE 1 MG TABLET PO SCH ×2 (09:11→20:01)
[2020-12-13] MEDS: DOCUSATE 100 MG CAPSULE PO PRN (11:26)
[2020-12-13 19:25] VITALS: BP 105/69
[2020-12-14 07:48] VITALS: BP 114/73
[2020-12-14] MEDS: BUSPIRONE 5 MG TABLET PO SCH ×2 (08:51→20:14)
[2020-12-14] MEDS: PAROXETINE 10 MG TABLET PO SCH (08:51)
[2020-12-14] MEDS: HALOPERIDOL 5 MG TABLET PO SCH ×2 (08:51→20:15)
[2020-12-14] MEDS: NICOTINE 21 MG/24 HR PATCH.TD24 TD SCH (08:51)
[2020-12-14] MEDS: BENZTROPINE 1 MG TABLET PO SCH ×2 (08:52→20:14)
[2020-12-14] MEDS: METHADONE 10 MG TABLET PO SCH (09:11)
[2020-12-14 19:39] VITALS: BP 101/65
[2020-12-14] MEDS: DOCUSATE 100 MG CAPSULE PO PRN (20:14)
[2020-12-15 07:39] VITALS: BP 111/77
[2020-12-15] MEDS: BENZTROPINE 1 MG TABLET PO SCH (08:44)
[2020-12-15] MEDS: BUSPIRONE 5 MG TABLET PO SCH (08:45)
[2020-12-15] MEDS: PAROXETINE 10 MG TABLET PO SCH (08:45)
[2020-12-15] MEDS: HALOPERIDOL 5 MG TABLET PO SCH (08:45)
[2020-12-15] MEDS: NICOTINE 21 MG/24 HR PATCH.TD24 TD SCH (08:46)
[2020-12-15] MEDS: METHADONE 10 MG TABLET PO SCH (09:12)
[2020-12-15] MEDS ORDERED: HALO5TAB5 PO (13:24)
[2020-12-15] MEDS ORDERED: PARO10TA3 PO (13:24)
[2020-12-15] MEDS ORDERED: NICO-587 TD (13:24)
[2020-12-15] MEDS ORDERED: BENZ1TAB61 PO (13:24)
== END 2020-12-15 14:36 | disposition home or self-care (01) | DRG 885 ==
LOC: 3E 14:26
PROVIDERS: ADMIT Psychiatry & Neurology Psychosomatic Medicine; ATTEND Psychiatry & Neurology Psychosomatic Medicine
DX: F25.0 Schizoaffective disorder, bipolar type (principal); F11.20 Opioid dependence, uncomplicated; R45.851 Suicidal ideations; F12.10 Cannabis abuse, uncomplicated; Z79.899 Other long term (current) drug therapy; E66.9 Obesity, unspecified; Z68.31 Body mass index [BMI] 31.0-31.9, adult; Y90.0 Blood alcohol level of less than 20 mg/100 ml; F17.210 Nicotine dependence, cigarettes, uncomplicated; Z90.49 Acquired absence of other specified parts of digestive tract; F10.20 Alcohol dependence, uncomplicated; Z71.6 Tobacco abuse counseling
CPT/HCPCS: 81003; 93005; Q0177

== ENCOUNTER 2021-01-07 08:03 | Inpatient (IN) | payer MEDICAID ==
[~2021-01-07] VITALS: Ht 185.4 cm; Wt 107.5 kg
[~2021-01-07 08:03] MED LIST changes: +BENZ1TAB61 PO; +BUSP5TAB2 PO; +HALO5TAB5 PO; +NATURE THYROID PO; +NICO-587 TD; +OLAN10TA69 PO; -OLAN10TA9 PO; +OLAN15TA14 PO; +PARO10TA3 PO; +TRAZ-175 PO
[2021-01-07] MEDS ORDERED: BISACODYL 10 MG SUPP PR PRN (09:30)
[2021-01-07] MEDS ORDERED: ONDANSETRON ODT 4 MG PO PRN (09:30)
[2021-01-07] MEDS ORDERED: NICOTINE 14MG/24 HR PATCH.TD24 TD SCH (09:30)
[2021-01-07 09:54] LABS: MICROSCOPIC INDICATED
[2021-01-07] MEDS ORDERED: METHADONE PO (12:49)
[2021-01-07 13:00] VITALS: BP 146/93
[2021-01-07 13:05] VITALS: BP 146/93
[2021-01-07] MEDS ORDERED: PLEASE ENTER HEIGHT AND WEIGHT MC SCH (13:30)
[2021-01-07] MEDS ORDERED: NICOTINE 14MG/24 HR PATCH.TD24 TD ONE (14:30)
[2021-01-07] MEDS: TRIHEXYPHENIDYL 2MG TABLET PO SCH ×2 (15:53→20:19)
[2021-01-07 18:47] VITALS: BP 126/85
[2021-01-07] MEDS: RISPERIDONE 1 MG TAB.RAPDIS PO SCH (20:19)
[2021-01-08 07:22] VITALS: BP 114/78
[2021-01-08] MEDS: METHADONE 10 MG TABLET PO SCH (08:59)
[2021-01-08] MEDS: RISPERIDONE 1 MG TAB.RAPDIS PO SCH ×2 (09:01→20:17)
[2021-01-08] MEDS: TRIHEXYPHENIDYL 2MG TABLET PO SCH ×3 (09:01→20:17)
[2021-01-08] MEDS: NICOTINE 14MG/24 HR PATCH.TD24 TD SCH (09:04)
[2021-01-08] MEDS ORDERED: COVID-19 VAC,AD26(JANSSEN)/PF 0.5ML IM-VACC ONE ×2 (12:00)
[2021-01-08] MEDS ORDERED: HYDROXYZINE PAMOATE 50MG CAP ONE (12:46)
[2021-01-08] MEDS: HYDROXYZINE PAMOATE 50MG CAP PO PRN ×3 (12:49→22:16)
[2021-01-08 19:33] VITALS: BP 117/80
[2021-01-09 07:52] VITALS: BP 107/71
[2021-01-09] MEDS: RISPERIDONE 1 MG TAB.RAPDIS PO SCH ×2 (08:35→21:26)
[2021-01-09] MEDS: TRIHEXYPHENIDYL 2MG TABLET PO SCH ×3 (08:35→21:26)
[2021-01-09] MEDS: METHADONE 10 MG TABLET PO SCH (08:36)
[2021-01-09] MEDS: NICOTINE 14MG/24 HR PATCH.TD24 TD SCH (08:50)
[2021-01-09 19:25] VITALS: BP 115/75
[2021-01-09] MEDS: TRAZODONE 100MG TABLET PO SCH (21:25)
[2021-01-09] MEDS: DOCUSATE 100 MG CAPSULE PO PRN (21:26)
[2021-01-09] MEDS: HYDROXYZINE PAMOATE 50MG CAP PO PRN (21:26)
[2021-01-10 07:39] VITALS: BP 115/79
[2021-01-10] MEDS: NICOTINE 14MG/24 HR PATCH.TD24 TD SCH (09:27)
[2021-01-10] MEDS: TRIHEXYPHENIDYL 2MG TABLET PO SCH ×3 (09:28→21:00)
[2021-01-10] MEDS: METHADONE 10 MG TABLET PO SCH (09:28)
[2021-01-10] MEDS: RISPERIDONE 1 MG TAB.RAPDIS PO SCH ×2 (09:28→21:00)
[2021-01-10] MEDS: DOCUSATE 100 MG CAPSULE PO PRN (11:14)
[2021-01-10] MEDS: POLYETHYLENE GLYCOL 17 GM PACKET PO PRN (11:14)
[2021-01-10] MEDS: ACETAMINOPHEN 325 MG TABLET PO PRN (11:14)
[2021-01-10] MEDS: HYDROXYZINE PAMOATE 50MG CAP PO PRN (17:17)
[2021-01-10 18:13] VITALS: BP 111/72
[2021-01-10] MEDS: TRAZODONE 100MG TABLET PO SCH (21:00)
[2021-01-11 07:16] VITALS: BP 120/82
[2021-01-11] MEDS: METHADONE 10 MG TABLET PO SCH (08:53)
[2021-01-11] MEDS: RISPERIDONE 1 MG TAB.RAPDIS PO SCH ×2 (08:53→21:47)
[2021-01-11] MEDS: TRIHEXYPHENIDYL 2MG TABLET PO SCH ×3 (08:53→21:47)
[2021-01-11] MEDS: NICOTINE 14MG/24 HR PATCH.TD24 TD SCH (08:54)
[2021-01-11] MEDS: HYDROXYZINE PAMOATE 50MG CAP PO PRN ×2 (09:09→18:36)
[2021-01-11] MEDS: ACETAMINOPHEN 325 MG TABLET PO PRN ×2 (09:09→18:36)
[2021-01-11 19:47] VITALS: BP 110/73
[2021-01-11] MEDS ORDERED: MAGNESIUM CITRATE 300ML ORAL SOL PO ONE (21:00)
[2021-01-11] MEDS: TRAZODONE 100MG TABLET PO SCH (21:47)
[2021-01-12] MEDS: ACETAMINOPHEN 325 MG TABLET PO PRN ×3 (03:54→20:27)
[2021-01-12] MEDS: HYDROXYZINE PAMOATE 50MG CAP PO PRN ×3 (03:56→20:34)
[2021-01-12 07:08] VITALS: BP 111/75
[2021-01-12] MEDS: NICOTINE 14MG/24 HR PATCH.TD24 TD SCH (08:48)
[2021-01-12] MEDS: METHADONE 10 MG TABLET PO SCH (08:50)
[2021-01-12] MEDS: TRIHEXYPHENIDYL 2MG TABLET PO SCH ×3 (08:53→20:27)
[2021-01-12] MEDS: RISPERIDONE 1 MG TAB.RAPDIS PO SCH ×2 (08:53→20:27)
[2021-01-12] MEDS: PAROXETINE 20 MG TABLET PO SCH (14:18)
[2021-01-12 20:01] VITALS: BP 108/72
[2021-01-12] MEDS: POLYETHYLENE GLYCOL 17 GM PACKET PO PRN (20:27)
[2021-01-12] MEDS: TRAZODONE 100MG TABLET PO SCH (20:27)
[2021-01-13 07:17] VITALS: BP 108/71
[2021-01-13] MEDS: METHADONE 10 MG TABLET PO SCH (08:21)
[2021-01-13] MEDS: NICOTINE 14MG/24 HR PATCH.TD24 TD SCH (08:22)
[2021-01-13] MEDS: RISPERIDONE 1 MG TAB.RAPDIS PO SCH ×2 (08:22→20:04)
[2021-01-13] MEDS: PAROXETINE 20 MG TABLET PO SCH (08:22)
[2021-01-13] MEDS: TRIHEXYPHENIDYL 2MG TABLET PO SCH ×3 (08:22→20:05)
[2021-01-13] MEDS: HYDROXYZINE PAMOATE 50MG CAP PO PRN ×2 (10:00→21:50)
[2021-01-13] MEDS ORDERED: MAGNESIUM CITRATE 300ML ORAL SOL PO ONE (11:30)
[2021-01-13 18:04] VITALS: BP 104/68
[2021-01-13] MEDS: TRAZODONE 100MG TABLET PO SCH (20:05)
[2021-01-13] MEDS: ACETAMINOPHEN 325 MG TABLET PO PRN (20:05)
[2021-01-14 07:20] VITALS: BP 104/69
[2021-01-14] MEDS: NICOTINE 14MG/24 HR PATCH.TD24 TD SCH (08:25)
[2021-01-14] MEDS: PAROXETINE 20 MG TABLET PO SCH (08:28)
[2021-01-14] MEDS: RISPERIDONE 1 MG TAB.RAPDIS PO SCH ×2 (08:28→20:44)
[2021-01-14] MEDS: TRIHEXYPHENIDYL 2MG TABLET PO SCH ×3 (08:29→20:42)
[2021-01-14] MEDS: METHADONE 10 MG TABLET PO SCH (08:30)
[2021-01-14] MEDS ORDERED: RISP-2 PO (14:33)
[2021-01-14] MEDS ORDERED: NICO-486 TD (14:33)
[2021-01-14] MEDS ORDERED: TRIH2TAB3 PO (14:33)
[2021-01-14] MEDS ORDERED: TRAZ-175 PO (14:33)
[2021-01-14] MEDS ORDERED: PARO20TA4 PO (14:33)
[2021-01-14] MEDS ORDERED: HYDR50CA2 PO (14:33)
[2021-01-14 19:14] VITALS: BP 109/72
[2021-01-14] MEDS: TRAZODONE 100MG TABLET PO SCH (20:42)
[2021-01-14] MEDS: HYDROXYZINE PAMOATE 50MG CAP PO PRN (22:06)
[2021-01-15 07:30] VITALS: BP 102/66
[2021-01-15 07:31] VITALS: BP 102/66
[2021-01-15] MEDS: NICOTINE 14MG/24 HR PATCH.TD24 TD SCH (08:14)
[2021-01-15] MEDS: TRIHEXYPHENIDYL 2MG TABLET PO SCH (08:14)
[2021-01-15] MEDS: RISPERIDONE 1 MG TAB.RAPDIS PO SCH (08:14)
[2021-01-15] MEDS: PAROXETINE 20 MG TABLET PO SCH (08:14)
[2021-01-15] MEDS: METHADONE 10 MG TABLET PO SCH (08:15)
[2021-01-15] MEDS: HYDROXYZINE PAMOATE 50MG CAP PO PRN (10:06)
== END 2021-01-15 13:30 | disposition home or self-care (01) | DRG 885 ==
LOC: 3E 12:54
PROVIDERS: ADMIT Psychiatry & Neurology Psychosomatic Medicine; ATTEND Psychiatry & Neurology Psychosomatic Medicine
DX: F25.0 Schizoaffective disorder, bipolar type (principal); R45.851 Suicidal ideations; E66.9 Obesity, unspecified; Z68.31 Body mass index [BMI] 31.0-31.9, adult; F10.10 Alcohol abuse, uncomplicated; F11.21 Opioid dependence, in remission; F12.10 Cannabis abuse, uncomplicated; F15.21 Other stimulant dependence, in remission; F17.200 Nicotine dependence, unspecified, uncomplicated; F41.9 Anxiety disorder, unspecified; G47.00 Insomnia, unspecified; G89.4 Chronic pain syndrome; M25.461 Effusion, right knee; R60.0 Localized edema; Z90.49 Acquired absence of other specified parts of digestive tract; Z79.899 Other long term (current) drug therapy; Z82.49 Family history of ischemic heart disease and other diseases of the circulatory system
CPT/HCPCS: 81001; 91303; 93005; 93970

== ENCOUNTER 2021-02-03 21:11 | Observation (INO) | payer MEDICAID ==
[~2021-02-03] VITALS: Ht 182.9 cm; Wt 115.8 kg
[~2021-02-03 21:11] MED LIST changes: +HYDR50CA2 PO; +METHADONE PO; +NICO-486 TD; +PARO20TA4 PO; +RISP-2 PO; +TRIH2TAB3 PO
[2021-02-03 21:19] VITALS: BP 125/83
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
--- NOTE | 2021-02-03 22:03 | NUR ---
PT STATES HE IS SEEN AT [facility] FOR METHADONE. TAKES 60MG EVERY MORNING. [phone]
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
--- NOTE | 2021-02-03 22:04 | NUR ---
BELONGINGS COLLECTED & PLACED IN LOCKER. SECURITY CALLED FOR SAFE KEEPING OF WALLET & CONTENTS.
[2021-02-03 22:12] LABS: BASOPHILS % (AUTO) 1 % (0-1); EOSINOPHILS % (AUTO) 4 % (1-7); LYMPHOCYTES % (AUTO) 37 % (22-44); MEAN CORPUSCULAR HEMOGLOBIN 30.6 pg (27.5-34.5); MEAN CORPUSCULAR HGB CONC 33.9 g/dL (33.2-36.2); MEAN PLATELET VOLUME 7.2 fL (7.4-10.4); MONOCYTES % (AUTO) 9 % (2-9); NEUTROPHILS % (AUTO) 50 % (42-75); PLATELET COUNT 214 x10^3/uL (130-400); RED BLOOD COUNT 4.96 x10^6/uL (4.38-5.82)
[2021-02-03 22:15] LABS: MICROSCOPIC NOT IND
--- NOTE | 2021-02-03 22:34 | NUR ---
PT GIVEN JUICE & CRACKERS & BLANKET. CALM & COOPERATIVE. LIGHTS TURNED DOWN. WILL CTM.
[2021-02-03 22:51] LABS: ALBUMIN 3.8 g/dL (3.4-5.0); ANION GAP 7 mmol/L (5-15); CALCIUM 8.5 mg/dL (8.5-10.1); CHLORIDE 104 mmol/L (98-107)
[2021-02-03 22:53] LABS: AMPHETAMINE SCREEN, URINE Negative (Negative); BARBITURATE SCREEN, URINE Negative (Negative); METHADONE SCREEN, URINE Positive (Negative)
[2021-02-03 22:54] LABS: BENZODIAZEPINE SCREEN, URINE Negative (Negative); CANNABINOID SCREEN, URINE Positive (Negative); COCAINE SCREEN, URINE Negative (Negative); OPIATE SCREEN, URINE Negative (Negative)
--- NOTE | 2021-02-03 23:00 | NUR ---
PT SLEEPING, RR EVEN NON LABORED. SITTER AT BS. WILL CTM.
[2021-02-03 23:02] LABS: SALICYLATE LEVEL < 1.7 mg/dL (2.8-20.0)
[2021-02-03 23:10] LABS: ALANINE AMINOTRANSFERASE 265 U/L (12-78); ALKALINE PHOSPHATASE 109 U/L (45-117); BILIRUBIN,TOTAL 0.4 mg/dL (0.2-1.0)
--- NOTE | 2021-02-04 | NUR ---
PT SLEEPING, RR EVEN NON LABORED. SITTER AT BS. WILL CTM.
--- NOTE | 2021-02-04 01:00 | NUR ---
PT SLEEPING, RR EVEN NON LABORED. SITTER AT BS. WILL CTM.
--- NOTE | 2021-02-04 01:31 | NUR ---
BREAK RN: PT WATCHING TV IN ROOM. SITTER AT DOOR. NO ACUTE DISTRESS NOTED. WILL CONTINUE TO MONITOR WHILE PRIMARY RN IS ON BREAK.
--- NOTE | 2021-02-04 01:58 | NUR ---
REPORT GIVEN TO PARISH ARRINGTON
--- NOTE | 2021-02-04 03:11 | NUR ---
BEDSIDE REPORT FROM MURPHY RN, PT CARE TRANSFERRED AT THIS TIME. PT NAD, RESTING ON GURNEY, ROOM SECURED, SITTER IN LINE OF SIGHT, HOSPITAL BED ORDERED AT THIS TIME. LISA.
--- NOTE | 2021-02-04 04:36 | NUR ---
PT RESTING ON GURNEY, NAD, BED IN LOWEST, ROOM SECURED, SITTER IN LINE OF SIGHT, EYES CLOSED, EVEN AND UNLABORED RESPIRATIONS. WCTM.
--- NOTE | 2021-02-04 05:08 | NUR ---
COVID swab walked to lab at this time. pt tolerated swab well. nad. denies additional questions or needs, bed in lowest, room secured, sitter in line of sight, wctm.
[2021-02-04] MEDS ORDERED: METH40TA3 PO (08:23)
== END 2021-02-04 06:33 ==
LOC: ED 22:11 → EDIP 23:43
PROVIDERS: ADMIT Emergency Medicine; ATTEND Emergency Medicine
DX: R45.851 Suicidal ideations (principal); Z20.822 Contact with and (suspected) exposure to COVID-19; F10.220 Alcohol dependence with intoxication, uncomplicated; F12.90 Cannabis use, unspecified, uncomplicated; F25.9 Schizoaffective disorder, unspecified; F41.8 Other specified anxiety disorders; Z79.899 Other long term (current) drug therapy
CPT/HCPCS: 36415; 80053; 80299; 80307; 80320; 80329; 81003; 85025; 87426; 99284; G0378; G0480

== ENCOUNTER 2021-02-04 05:14 | Inpatient (IN) | payer MEDICAID ==
[~2021-02-04] VITALS: Ht 185.4 cm; Wt 99.8 kg
[2021-02-04] MEDS ORDERED: BISACODYL 10 MG SUPP PR PRN (07:00)
[2021-02-04] MEDS ORDERED: ONDANSETRON ODT 4 MG PO PRN (07:00)
[2021-02-04] MEDS ORDERED: ACETAMINOPHEN 325 MG TABLET PO PRN (07:00)
[2021-02-04 07:30] VITALS: BP 113/74
[2021-02-04] MEDS ORDERED: METH40TA3 PO (08:23)
[2021-02-04] MEDS: PAROXETINE 20 MG TABLET PO SCH (09:04)
[2021-02-04] MEDS: RISPERIDONE 2 MG TABLET PO SCH ×2 (09:04→20:37)
[2021-02-04] MEDS: TRIHEXYPHENIDYL 2MG TABLET PO SCH ×3 (09:04→20:37)
[2021-02-04] MEDS: NICOTINE 14MG/24 HR PATCH.TD24 TD SCH (09:05)
[2021-02-04 09:19] VITALS: BP 134/86
[2021-02-04] MEDS ORDERED: METHADONE 5 MG TABLET ONE (11:01)
[2021-02-04] MEDS: METHADONE 10 MG TABLET PO SCH (11:02)
[2021-02-04 18:33] VITALS: BP 115/74
[2021-02-04] MEDS: TRAZODONE 100MG TABLET PO SCH (20:37)
[2021-02-04] MEDS: HYDROXYZINE PAMOATE 50MG CAP PO PRN (20:37)
[2021-02-05 05:43] LABS: BASOPHILS % (AUTO) 0 % (0-1); EOSINOPHILS % (AUTO) 5 % (1-7); LYMPHOCYTES % (AUTO) 43 % (22-44); MEAN CORPUSCULAR HEMOGLOBIN 30.5 pg (27.5-34.5); MEAN CORPUSCULAR HGB CONC 33.7 g/dL (33.2-36.2); MEAN PLATELET VOLUME 7.2 fL (7.4-10.4); MONOCYTES % (AUTO) 7 % (2-9); NEUTROPHILS % (AUTO) 46 % (42-75); PLATELET COUNT 180 x10^3/uL (130-400); RED BLOOD COUNT 4.96 x10^6/uL (4.38-5.82); RED CELL DISTRIBUTION WIDTH 14.3 % (9.4-14.8)
[2021-02-05 06:01] LABS: CHLORIDE 105 mmol/L (98-107)
[2021-02-05 06:13] LABS: % IRON SATURATION 40 % (20-55); ALANINE AMINOTRANSFERASE 221 U/L (12-78); ALBUMIN 3.2 g/dL (3.4-5.0); ALKALINE PHOSPHATASE 101 U/L (45-117); ANION GAP 6 mmol/L (5-15); BILIRUBIN,TOTAL 0.5 mg/dL (0.2-1.0); CREATINE KINASE, TOTAL 35 U/L (39-308); CREATININE 0.98 mg/dL (0.7-1.3); IRON LEVEL 139 mcg/dL (65-175); TOTAL IRON BINDING CAPACITY 351 mcg/dL (250-450); TOTAL PROTEIN 7.2 g/dL (6.4-8.2)
[2021-02-05 07:26] VITALS: BP 123/80
[2021-02-05] MEDS: TRIHEXYPHENIDYL 2MG TABLET PO SCH (08:25)
[2021-02-05] MEDS: PAROXETINE 20 MG TABLET PO SCH (08:25)
[2021-02-05] MEDS: RISPERIDONE 2 MG TABLET PO SCH ×2 (08:25→20:08)
[2021-02-05] MEDS: NICOTINE 14MG/24 HR PATCH.TD24 TD SCH (08:26)
[2021-02-05] MEDS: METHADONE 10 MG TABLET PO SCH (08:26)
[2021-02-05 19:45] VITALS: BP 129/84
[2021-02-05] MEDS: POLYETHYLENE GLYCOL 17 GM PACKET PO PRN (20:07)
[2021-02-05] MEDS: BENZTROPINE 1 MG TABLET PO SCH (20:07)
[2021-02-05] MEDS: TRAZODONE 100MG TABLET PO SCH (20:07)
[2021-02-06 07:22] VITALS: BP 123/80
[2021-02-06] MEDS: BENZTROPINE 1 MG TABLET PO SCH ×2 (08:28→20:45)
[2021-02-06] MEDS: RISPERIDONE 2 MG TABLET PO SCH ×2 (08:28→20:45)
[2021-02-06] MEDS: PAROXETINE 20 MG TABLET PO SCH (08:28)
[2021-02-06] MEDS: NICOTINE 14MG/24 HR PATCH.TD24 TD SCH (08:29)
[2021-02-06] MEDS: METHADONE 10 MG TABLET PO SCH (08:30)
[2021-02-06 18:42] VITALS: BP 123/79
[2021-02-06] MEDS: DOCUSATE 100 MG CAPSULE PO PRN (20:44)
[2021-02-06] MEDS: TRAZODONE 100MG TABLET PO SCH (20:44)
[2021-02-06] MEDS: HYDROXYZINE PAMOATE 50MG CAP PO PRN (20:44)
[2021-02-07] MEDS: HYDROXYZINE PAMOATE 50MG CAP PO PRN (00:57)
[2021-02-07] MEDS: NICOTINE 14MG/24 HR PATCH.TD24 TD SCH (08:35)
[2021-02-07] MEDS: METHADONE 10 MG TABLET PO SCH (08:37)
[2021-02-07] MEDS: BENZTROPINE 1 MG TABLET PO SCH ×2 (08:38→21:07)
[2021-02-07] MEDS: PAROXETINE 20 MG TABLET PO SCH (08:38)
[2021-02-07] MEDS: RISPERIDONE 2 MG TABLET PO SCH ×2 (08:38→21:06)
[2021-02-07] MEDS: POLYETHYLENE GLYCOL 17 GM PACKET PO PRN (08:49)
[2021-02-07 21:04] VITALS: BP 125/85
[2021-02-07] MEDS: TRAZODONE 100MG TABLET PO SCH (21:07)
[2021-02-08 06:30] VITALS: BP 111/71
[2021-02-08] MEDS: NICOTINE 14MG/24 HR PATCH.TD24 TD SCH (08:46)
[2021-02-08] MEDS: METHADONE 10 MG TABLET PO SCH (08:47)
[2021-02-08] MEDS: BENZTROPINE 1 MG TABLET PO SCH ×2 (08:48→20:28)
[2021-02-08] MEDS: PAROXETINE 20 MG TABLET PO SCH (08:48)
[2021-02-08] MEDS: RISPERIDONE 2 MG TABLET PO SCH ×2 (08:48→20:28)
[2021-02-08] MEDS ORDERED: MAGNESIUM CITRATE 300ML ORAL SOL PO ONE (18:00)
[2021-02-08 19:37] VITALS: BP 100/67
[2021-02-08] MEDS: DOCUSATE 100 MG CAPSULE PO PRN (20:28)
[2021-02-08] MEDS: TRAZODONE 100MG TABLET PO SCH (20:28)
[2021-02-09 07:22] VITALS: BP 124/78
[2021-02-09] MEDS: NICOTINE 14MG/24 HR PATCH.TD24 TD SCH (09:13)
[2021-02-09] MEDS: RISPERIDONE 2 MG TABLET PO SCH ×2 (09:15→20:39)
[2021-02-09] MEDS: PAROXETINE 20 MG TABLET PO SCH (09:15)
[2021-02-09] MEDS: METHADONE 10 MG TABLET PO SCH (09:15)
[2021-02-09] MEDS: BENZTROPINE 1 MG TABLET PO SCH ×2 (09:15→20:39)
[2021-02-09] MEDS ORDERED: MAGNESIUM CITRATE 300ML ORAL SOL PO PRN (19:00)
[2021-02-09 19:45] VITALS: BP 108/68
[2021-02-09] MEDS: TRAZODONE 100MG TABLET PO SCH (20:39)
[2021-02-10 07:10] VITALS: BP 100/61
[2021-02-10] MEDS: BENZTROPINE 1 MG TABLET PO SCH (08:33)
[2021-02-10] MEDS: METHADONE 10 MG TABLET PO SCH (08:33)
[2021-02-10] MEDS: RISPERIDONE 2 MG TABLET PO SCH (08:34)
[2021-02-10] MEDS: PAROXETINE 20 MG TABLET PO SCH (08:34)
[2021-02-10] MEDS: NICOTINE 14MG/24 HR PATCH.TD24 TD SCH (08:34)
[2021-02-10] MEDS ORDERED: HYDR50CA2 PO (09:56)
[2021-02-10] MEDS ORDERED: BENZ1TAB61 PO (09:56)
[2021-02-10] MEDS ORDERED: RISP2TAB80 PO (09:56)
[2021-02-10] MEDS ORDERED: TRAZ-175 PO (09:56)
[2021-02-10] MEDS ORDERED: PARO20TA4 PO (09:56)
== END 2021-02-10 13:36 | disposition home or self-care (01) | DRG 885 ==
LOC: 3E 06:31
PROVIDERS: ADMIT Psychiatry & Neurology Psychosomatic Medicine; ATTEND Psychiatry & Neurology Psychosomatic Medicine
DX: F25.0 Schizoaffective disorder, bipolar type (principal); B18.2 Chronic viral hepatitis C; F11.20 Opioid dependence, uncomplicated; R45.851 Suicidal ideations; G47.00 Insomnia, unspecified; E03.9 Hypothyroidism, unspecified; F10.20 Alcohol dependence, uncomplicated; F12.20 Cannabis dependence, uncomplicated; F41.9 Anxiety disorder, unspecified; F60.0 Paranoid personality disorder; G89.29 Other chronic pain; Z79.899 Other long term (current) drug therapy; Z20.822 Contact with and (suspected) exposure to COVID-19
CPT/HCPCS: 36415; 76700; 80053; 80074; 82550; 83540; 83550; 84443; 85025; 87521; 87522; 93005; U0005; U0003